=== PATIENT | male | born 1945 | race American Indian/Alaskan Native ===

== ENCOUNTER 2024-05-02 09:57 | Inpatient (IN) ==
[2024-05-02 11:31] LABS: Basophils # (Auto) 0.03 K/mcL (0.00-0.30); Basophils % (Auto) 0.3 % (0.0-2.0); Eosinophils % (Auto) 1.7 % (0.0-7.0); Hematocrit 47.6 % (40.1-51.0); Hemoglobin 15.4 g/dL (13.7-17.5); Lymphocytes # (Auto) 1.03 K/mcL (1.50-4.80); Lymphocytes % (Auto) 8.6 % (15.5-49.0); Mean Cell Volume 89.6 fL (80.0-100.0); Mean Corpuscular HGB Conc 32.4 g/dL (31.0-36.0); Mean Platelet Volume 9.8 fL (8.8-12.5); Monocytes # (Auto) 0.44 K/mcL (0.10-0.90); Monocytes % (Auto) 3.7 % (1.0-12.0); Neutrophils % (Auto) 85.5 % (38.0-78.0); Platelet Count 175 K/mcL (140-440); RBC 5.31 M/mcL (4.63-6.08); Red Cell Distribution Width 13.5 % (11.5-14.5); WBC 11.9 K/mcL (4.5-11.0)
[2024-05-02] MEDS: morphine 4 MG/ML VIAL IV ONE (11:36)
[2024-05-02 11:46] LABS: INR 1.1 (0.9-1.1); Prothrombin Time 14.8 sec (11.9-14.5)
[2024-05-02 12:03] LABS: ALT/SGPT 12 U/L (<40); AST/SGOT 22 U/L (<40); Albumin 4.2 gm/dL (3.2-5.2); Albumin/Globulin Ratio 1.2 (1.0-2.3); Alkaline Phosphatase 108 U/L (39-117); Bilirubin,Total 1.1 mg/dL (0.1-1.0); Blood Urea Nitrogen 23 mg/dL (8-23); Calcium 8.7 mg/dL (8.6-10.4); Carbon Dioxide 23 mmol/L (22-30); Chloride 103 mmol/L (96-108); Globulin 3.5 gm/dL (2.2-3.7); Glomerular Filtration Rate 81; Glucose 105 mg/dL (70-105); Potassium 4.1 mmol/L (3.3-5.1); Sodium 139 mmol/L (133-145)
[2024-05-02] MEDS ORDERED: ONDANSETRON 4 MG/2 ML VIAL IV PRN ×2 (13:41→18:24)
[2024-05-02] MEDS ORDERED: oxyCODONE/APAP 5/325MG TABLET PO PRN (13:41)
[2024-05-02] MEDS: 0.9 % SODIUM CHLORIDE 10 ML SYRINGE IV SCH ×2 (15:22→22:16)
[2024-05-02] MEDS ORDERED: NICOTINE POLACRILEX 2 MG GUM CHEW/PARK PRN (15:42)
[2024-05-02] MEDS: NICOTINE 14 MG PATCH TOPICAL SCH (15:56)
[2024-05-02] MEDS: morphine 4 MG/ML VIAL IV PRN (16:52)
[2024-05-02] MEDS ORDERED: LIDOCAINE 2% PF 5 ML VIAL ONE (17:18)
[2024-05-02] MEDS ORDERED: DEXAMETHASONE 10 MG/ML VIAL ONE (17:18)
[2024-05-02] MEDS ORDERED: PROPOFOL 200 MG/20 ML VIAL IV ONE (17:18)
[2024-05-02] MEDS ORDERED: KETAMINE 50 MG/ML ML ONE (17:18)
[2024-05-02] MEDS ORDERED: ONDANSETRON 4 MG/2 ML VIAL ONE (17:18)
[2024-05-02] MEDS ORDERED: PHENYLephrine 1 MG/10 ML SYRINGE (ANEST) ONE (17:58)
[2024-05-02] MEDS ORDERED: fentaNYL 100 MCG/2 ML VIAL ONE (18:00)
[2024-05-02] MEDS ORDERED: VASOPRESSIN 20 UNIT/ML VIAL ONE (18:04)
[2024-05-02] MEDS: ceFAZolin 2 GM in DEXTROSE 5% IN WATER 50 ML IV SCH (18:20)
[2024-05-02] MEDS ORDERED: NALOXONE HCL 0.4 MG/ML VIAL IV PRN (18:24)
[2024-05-02] MEDS ORDERED: diphenhydrAMINE 50 MG/ML VIAL IV PRN (18:24)
[2024-05-02] MEDS ORDERED: METHOCARBAMOL 1,000 MG/10 ML VIAL IV PRN (18:24)
[2024-05-02] MEDS ORDERED: IPRATROPIUM/ALBUTEROL 3 ML AMPUL.NEB NEB PRN (18:24)
[2024-05-02] MEDS ORDERED: fentaNYL 100 MCG/2 ML VIAL IV PRN (18:24)
[2024-05-02] MEDS ORDERED: MEPERIDINE 25 MG/ML VIAL IV PRN (18:24)
[2024-05-02] MEDS ORDERED: LACTATED RINGERS 250 ML IV PRN (18:24)
[2024-05-02] MEDS: VANCOMYCIN 1 GM VIAL TOPICAL SCH (18:35)
[2024-05-02] MEDS ORDERED: BENZOCAINE/MENTHOL 1 LOZENGE PO PRN (18:42)
[2024-05-02] MEDS: NALOXONE HCL 0.4 MG/ML VIAL IV PRN (19:03)
[2024-05-02] MEDS: ACETAMINOPHEN 1,000 MG/100 ML BAG IV ONE (19:56)
[2024-05-02] MEDS: SENNOSIDES 1 TABLET PO SCH (22:15)
[2024-05-02] MEDS: DOCUSATE SODIUM 100 MG CAPSULE PO SCH (22:15)
[2024-05-03] MEDS: ceFAZolin 1 GM VIAL IV SCH (04:05)
[2024-05-03 06:08] LABS: Basophils # (Auto) 0.01 K/mcL (0.00-0.30); Basophils % (Auto) 0.1 % (0.0-2.0); Eosinophils # (Auto) 0 K/mcL (0.00-0.70); Eosinophils % (Auto) 0 % (0.0-7.0); Hematocrit 45.2 % (40.1-51.0); Hemoglobin 14.6 g/dL (13.7-17.5); Lymphocytes # (Auto) 0.88 K/mcL (1.50-4.80); Lymphocytes % (Auto) 6.6 % (15.5-49.0); Mean Cell Volume 89.2 fL (80.0-100.0); Mean Corpuscular HGB Conc 32.3 g/dL (31.0-36.0); Mean Platelet Volume 9.9 fL (8.8-12.5); Monocytes # (Auto) 0.45 K/mcL (0.10-0.90); Monocytes % (Auto) 3.4 % (1.0-12.0); Neutrophils % (Auto) 89.7 % (38.0-78.0); Platelet Count 182 K/mcL (140-440); RBC 5.07 M/mcL (4.63-6.08); Red Cell Distribution Width 13.7 % (11.5-14.5); WBC 13.4 K/mcL (4.5-11.0)
[2024-05-03] MEDS: ceFAZolin 2 GM in DEXTROSE 5% IN WATER 50 ML IV SCH (06:35)
[2024-05-03] MEDS: LACTATED RINGERS 1,000 ML IV SCH (06:35)
[2024-05-03 06:37] LABS: ALT/SGPT 12 U/L (<40); AST/SGOT 39 U/L (<40); Albumin 3.6 gm/dL (3.2-5.2); Albumin/Globulin Ratio 1.1 (1.0-2.3); Alkaline Phosphatase 89 U/L (39-117); Bilirubin,Total 0.8 mg/dL (0.1-1.0); Blood Urea Nitrogen 29 mg/dL (8-23); Calcium 8.6 mg/dL (8.6-10.4); Carbon Dioxide 22 mmol/L (22-30); Chloride 103 mmol/L (96-108); Globulin 3.2 gm/dL (2.2-3.7); Glomerular Filtration Rate 52; Glucose 136 mg/dL (70-105); Potassium 4.6 mmol/L (3.3-5.1); Sodium 138 mmol/L (133-145)
[2024-05-03] MEDS: POLYETHYLENE GLYCOL 3350 17 GM PACKET PO SCH (08:40)
[2024-05-03] MEDS: LISINOPRIL 2.5 MG TABLET PO SCH (08:40)
[2024-05-03] MEDS: METHIMAZOLE 5 MG TABLET PO SCH (08:41)
[2024-05-03] MEDS: ASPIRIN 81 MG TAB.CHEW PO SCH (08:41)
[2024-05-03] MEDS: METOPROLOL SUCCINATE 25 MG TAB.XL.24H PO SCH (08:42)
[2024-05-03] MEDS ORDERED: ENOXAPARIN 40 MG/0.4 ML SYRINGE SQ SCH (09:00)
[2024-05-03] MEDS: HYDROCODONE/APAP 7.5/325MG TABLET PO PRN (11:17)
[2024-05-03] MEDS: hydrOXYzine 25 MG TABLET PO PRN (15:00)
[2024-05-03] MEDS: ACETAMINOPHEN 325 MG TABLET PO PRN (15:00)
[2024-05-04 06:26] LABS: Basophils # (Auto) 0.04 K/mcL (0.00-0.30); Basophils % (Auto) 0.4 % (0.0-2.0); Eosinophils # (Auto) 0.51 K/mcL (0.00-0.70); Eosinophils % (Auto) 5.2 % (0.0-7.0); Hematocrit 39.6 % (40.1-51.0); Lymphocytes # (Auto) 1.36 K/mcL (1.50-4.80); Lymphocytes % (Auto) 13.9 % (15.5-49.0); Mean Cell Volume 89.2 fL (80.0-100.0); Mean Corpuscular HGB Conc 32.8 g/dL (31.0-36.0); Mean Platelet Volume 10.1 fL (8.8-12.5); Monocytes # (Auto) 0.54 K/mcL (0.10-0.90); Monocytes % (Auto) 5.5 % (1.0-12.0); Neutrophils % (Auto) 74.8 % (38.0-78.0); Platelet Count 151 K/mcL (140-440); RBC 4.44 M/mcL (4.63-6.08); Red Cell Distribution Width 13.6 % (11.5-14.5); WBC 9.8 K/mcL (4.5-11.0)
[2024-05-04 06:43] LABS: ALT/SGPT 8 U/L (<40); AST/SGOT 34 U/L (<40); Albumin 3.1 gm/dL (3.2-5.2); Albumin/Globulin Ratio 1.1 (1.0-2.3); Alkaline Phosphatase 71 U/L (39-117); Bilirubin,Total 0.6 mg/dL (0.1-1.0); Blood Urea Nitrogen 32 mg/dL (8-23); Carbon Dioxide 21 mmol/L (22-30); Chloride 103 mmol/L (96-108); Globulin 2.9 gm/dL (2.2-3.7); Glomerular Filtration Rate 81; Glucose 102 mg/dL (70-105); Potassium 4.2 mmol/L (3.3-5.1); Sodium 134 mmol/L (133-145)
[2024-05-04] MEDS: NITROGLYCERIN 0.4 MG TAB.SUBL SL PRN (17:48)
[2024-05-04] MEDS: MAGNESIUM HYDROXIDE 30 ML ORAL.SUSP PO PRN (17:50)
[2024-05-04] MEDS: BISMUTH SUBSALICYLATE 15 ML ORAL.SUSP PO ONE (18:09)
[2024-05-04] MEDS: BISMUTH SUBSALICYLATE 15 ML ORAL.SUSP PO SCH (20:14)
[2024-05-05 06:36] LABS: ALT/SGPT 62 U/L (<40); AST/SGOT 92 U/L (<40); Albumin 3.1 gm/dL (3.2-5.2); Albumin/Globulin Ratio 1.2 (1.0-2.3); Alkaline Phosphatase 171 U/L (39-117); Bilirubin,Direct 0.4 mg/dL (<0.3); Bilirubin,Total 0.7 mg/dL (0.1-1.0); Blood Urea Nitrogen 27 mg/dL (8-23); Calcium 7.8 mg/dL (8.6-10.4); Carbon Dioxide 21 mmol/L (22-30); Chloride 105 mmol/L (96-108); Globulin 2.6 gm/dL (2.2-3.7); Glomerular Filtration Rate 85; Glucose 99 mg/dL (70-105); Lactate Dehydrogenase 261 U/L (135-225); Phosphorous 2.9 mg/dL (2.5-4.5); Potassium 4.3 mmol/L (3.3-5.1); Sodium 136 mmol/L (133-145); Triglycerides 77 mg/dL (<150); Uric Acid 4.1 mg/dL (2.5-8.0)
== END 2024-05-05 10:10 | DRG 522 ==
LOC: ED 09:57 → SUATTDRO 13:46 → MEDSUR 13:46 → ICU 19:39 → MEDSUR 05-03 08:30
PROVIDERS: ADMIT Student in an Organized Health Care Education/Training Program; ATTEND Orthopaedic Surgery Orthopaedic Surgery of the Spine
PROC: HEMIHIP (2024-05-02 17:53)

== ENCOUNTER 2024-06-21 21:28 | Inpatient (IN) ==
[2024-06-21] MEDS ORDERED: IOPAMIDOL 100 ML BOTTLE IV ONE (21:29)
[2024-06-21] MEDS: 0.9 % SODIUM CHLORIDE 500 ML IV ONE ×2 (21:49→23:00)
[2024-06-21] MEDS: 0.9 % SODIUM CHLORIDE 1,000 ML IV ONE (21:54)
[2024-06-21 21:57] LABS: Basophils # (Auto) 0.04 K/mcL (0.00-0.30); Basophils % (Auto) 0.3 % (0.0-2.0); Eosinophils # (Auto) 0.11 K/mcL (0.00-0.70); Hematocrit 41.9 % (40.1-51.0); Hemoglobin 13.3 g/dL (13.7-17.5); Lymphocytes # (Auto) 0.97 K/mcL (1.50-4.80); Lymphocytes % (Auto) 8.4 % (15.5-49.0); Mean Cell Volume 90.9 fL (80.0-100.0); Mean Corpuscular HGB Conc 31.7 g/dL (31.0-36.0); Mean Platelet Volume 9.1 fL (8.8-12.5); Monocytes # (Auto) 0.53 K/mcL (0.10-0.90); Monocytes % (Auto) 4.6 % (1.0-12.0); Neutrophils % (Auto) 85.5 % (38.0-78.0); Platelet Count 263 K/mcL (140-440); RBC 4.61 M/mcL (4.63-6.08); Red Cell Distribution Width 13.3 % (11.5-14.5); WBC 11.6 K/mcL (4.5-11.0)
[2024-06-21] MEDS: cefTRIAXone 2 GM in DEXTROSE 5% IN WATER 50 ML IV ONE (22:12)
[2024-06-21 22:13] LABS: ALT/SGPT 11 U/L (<40); AST/SGOT 18 U/L (<40); Albumin 3.8 gm/dL (3.2-5.2); Albumin/Globulin Ratio 1.1 (1.0-2.3); Alkaline Phosphatase 120 U/L (39-117); Bilirubin,Total 0.3 mg/dL (0.1-1.0); Blood Urea Nitrogen 20 mg/dL (8-23); Calcium 8.8 mg/dL (8.6-10.4); Carbon Dioxide 22 mmol/L (22-30); Chloride 101 mmol/L (96-108); Globulin 3.4 gm/dL (2.2-3.7); Glomerular Filtration Rate 81; Glucose 139 mg/dL (70-105); Sodium 137 mmol/L (133-145)
[2024-06-21] MEDS: AZITHROMYCIN 500 MG in 0.9 % SODIUM CHLORIDE 250 ML IV ONE (22:55)
[2024-06-22] MEDS: FUROSEMIDE 40 MG/4 ML VIAL IV ONE (00:10)
[2024-06-22] MEDS: 0.9 % SODIUM CHLORIDE 1,000 ML IV ONE (00:24)
[2024-06-22] MEDS ORDERED: IPRATROPIUM/ALBUTEROL 3 ML AMPUL.NEB NEB PRN ×2 (02:46→08:54)
[2024-06-22] MEDS ORDERED: MAGNESIUM SULFATE 2 GM/50 ML BAG IV PRN (08:54)
[2024-06-22] MEDS ORDERED: SENNOSIDES 1 TABLET PO PRN (08:54)
[2024-06-22] MEDS ORDERED: POTASSIUM CHLORIDE 20 MEQ TABLET PO PRN ×2 (08:54)
[2024-06-22] MEDS ORDERED: POTASSIUM CHLORIDE 40 MEQ in DEXTROSE 5% IN WATER 500 ML IV PRN (08:54)
[2024-06-22] MEDS ORDERED: POLYETHYLENE GLYCOL 3350 17 GM PACKET PO PRN (08:54)
[2024-06-22] MEDS ORDERED: ONDANSETRON 4 MG/2 ML VIAL IV PRN (08:54)
[2024-06-22] MEDS ORDERED: ACETAMINOPHEN 325 MG TABLET PO PRN (08:54)
[2024-06-22] MEDS ORDERED: HYDROCODONE/APAP 7.5/325MG TABLET PO PRN (09:00)
[2024-06-22] MEDS: ATORVASTATIN 20 MG TABLET PO SCH (09:47)
[2024-06-22] MEDS: METOPROLOL SUCCINATE 25 MG TAB.XL.24H PO SCH (09:47)
[2024-06-22] MEDS: LISINOPRIL 2.5 MG TABLET PO SCH (09:48)
[2024-06-22] MEDS: METHIMAZOLE 5 MG TABLET PO SCH (09:48)
[2024-06-22] MEDS: ENOXAPARIN 40 MG/0.4 ML SYRINGE SQ SCH (09:49)
[2024-06-22] MEDS: DOCUSATE SODIUM 100 MG CAPSULE PO SCH (10:03)
[2024-06-22] MEDS: METOCLOPRAMIDE 10 MG/2 ML VIAL IV PRN (12:49)
[2024-06-22] MEDS ORDERED: AZITHROMYCIN 500 MG in DEXTROSE 5% IN WATER 250 ML IV SCH (13:00)
[2024-06-22] MEDS: cefTRIAXone 1 GM VIAL IV SCH (13:15)
[2024-06-22] MEDS: 0.9 % SODIUM CHLORIDE 10 ML SYRINGE IV SCH (13:15)
[2024-06-22] MEDS: AZITHROMYCIN 500 MG in 0.9 % SODIUM CHLORIDE 250 ML IV SCH (13:15)
[2024-06-22] MEDS: ASPIRIN 81 MG TAB.CHEW PO SCH (20:43)
[2024-06-23 06:13] LABS: Basophils # (Auto) 0.05 K/mcL (0.00-0.30); Basophils % (Auto) 0.7 % (0.0-2.0); Eosinophils # (Auto) 0.25 K/mcL (0.00-0.70); Eosinophils % (Auto) 3.3 % (0.0-7.0); Hematocrit 36.9 % (40.1-51.0); Hemoglobin 12.1 g/dL (13.7-17.5); Lymphocytes # (Auto) 1.89 K/mcL (1.50-4.80); Lymphocytes % (Auto) 24.9 % (15.5-49.0); Mean Cell Volume 88.9 fL (80.0-100.0); Mean Corpuscular HGB Conc 32.8 g/dL (31.0-36.0); Monocytes # (Auto) 0.56 K/mcL (0.10-0.90); Monocytes % (Auto) 7.4 % (1.0-12.0); Neutrophils % (Auto) 63.6 % (38.0-78.0); Platelet Count 239 K/mcL (140-440); RBC 4.15 M/mcL (4.63-6.08); Red Cell Distribution Width 13.1 % (11.5-14.5); WBC 7.6 K/mcL (4.5-11.0)
[2024-06-23 06:35] LABS: Blood Urea Nitrogen 20 mg/dL (8-23); Calcium 8.4 mg/dL (8.6-10.4); Carbon Dioxide 23 mmol/L (22-30); Chloride 105 mmol/L (96-108); Glomerular Filtration Rate 90; Glucose 104 mg/dL (70-105); Potassium 3.5 mmol/L (3.3-5.1); Sodium 139 mmol/L (133-145)
[2024-06-23] MEDS: FUROSEMIDE 40 MG TABLET PO SCH (08:58)
[2024-06-23] MEDS: PNEUMOCOCCAL 23-VAL P-SAC VAC 0.5 ML SYRINGE IM ONE (08:59)
== END 2024-06-23 14:23 | disposition home or self-care (01) | DRG 195 ==
LOC: ED 21:28 → ICU 06-22 03:10 → MEDSUR 06-22 15:21
PROVIDERS: ADMIT Internal Medicine; ATTEND Internal Medicine